=== PATIENT | female | born 1970 | race Caucasian/White ===

== ENCOUNTER 2018-11-16 14:15 | Emergency (ER) | payer SELFPAY ==
[~2018-11-16] VITALS: Ht 167.6 cm; Wt 62.6 kg
[2018-11-16 14:20] VITALS: BP 163/95
[2018-11-16 15:18] VITALS: BP 163/95
== END 2018-11-16 15:10 ==
LOC: MED 14:15
DX: R03.0 Elevated blood-pressure reading, without diagnosis of hypertension (principal); Z02.89 Encounter for other administrative examinations
CPT/HCPCS: 99283